=== PATIENT | female | born 1945 | race Caucasian/White ===

== ENCOUNTER 2019-04-01 12:23 | Outpatient (REF) | payer MEDICARE, OTHER, SELFPAY ==
[2019-04-01 21:44] LABS: TSH (W/Ref FT4) 23.18 uIU/mL (0.36-3.74)
== END 2019-04-01 12:43 ==
LOC: NCHCN 12:23
PROVIDERS: PCP Family Medicine; Visit Provider Nurse Practitioner Family
DX: E03.9 Hypothyroidism, unspecified (principal)
CPT/HCPCS: 84439; 84443

== ENCOUNTER 2019-06-07 21:07 | Outpatient (REF) | payer MEDICARE, OTHER, SELFPAY ==
[2019-06-07 21:32] LABS: TSH 6.59 uIU/mL (0.36-3.74)
== END 2019-06-07 21:27 ==
LOC: NCHCN 21:07
PROVIDERS: PCP Family Medicine; Visit Provider Nurse Practitioner Family
DX: E03.9 Hypothyroidism, unspecified (principal)
CPT/HCPCS: 84443

== ENCOUNTER 2019-08-29 14:09 | Outpatient (REF) | payer MEDICARE, OTHER, SELFPAY ==
[2019-08-29 21:39] LABS: TSH 0.23 uIU/mL (0.36-3.74)
[2019-08-29 21:41] LABS: Vitamin D 25 Total 29.7 ng/ml (30-100)
== END 2019-08-29 14:29 ==
LOC: NCHCN 14:09
PROVIDERS: PCP Family Medicine; Visit Provider Nurse Practitioner Family
DX: E03.9 Hypothyroidism, unspecified (principal); E55.9 Vitamin D deficiency, unspecified
CPT/HCPCS: 82306; 84443

== ENCOUNTER 2019-11-19 12:03 | Outpatient (REF) | payer MEDICARE, OTHER, SELFPAY | END 2019-11-19 12:23 | LOC: NCHCN 12:03 | PROVIDERS: PCP Family Medicine; Visit Provider Nurse Practitioner Family | DX: E03.9 Hypothyroidism, unspecified (principal) | CPT/HCPCS: 84443 ==

== ENCOUNTER 2020-05-20 15:45 | Outpatient (REF) | payer MEDICARE, OTHER, SELFPAY | END 2020-05-20 16:05 | LOC: NCHCN 15:45 | PROVIDERS: PCP Family Medicine; Visit Provider Nurse Practitioner Family | DX: E03.9 Hypothyroidism, unspecified (principal) | CPT/HCPCS: 84443 ==

== ENCOUNTER 2020-05-25 11:48 | Outpatient (REF) | payer MEDICARE, OTHER, SELFPAY ==
[2020-05-25 21:48] LABS: Abs Immature Grans 0.02 10^3/uL (0.0-0.06); Absolute Basophil Count 0.06 10^3/uL (0.0-0.2); Absolute Eosinophil Count 0.24 10^3/uL (0.0-0.7); Absolute Lymphocyte Count 1.93 10^3/uL (1.2-3.4); Absolute Neutrophil Count 3.12 10^3/uL (1.2-6.7); HCT 41.2 % (36.0-46.0); HGB 13.5 g/dL (11.2-15.7); Immature Grans % 0.3; Lymphocytes % 32.3; MCH 31.7 pg (27.0-33.0); MCHC 32.8 % (32.0-36.0); MCV 96.7 fL (80-95); MPV 9.8 fL (8.0-11.0); Monocytes % 10.1; Neutrophils % 52.3; Nucleated RBC 0 %; Platelet Count 222 10^3/uL (130-400); RBC 4.26 10^6/uL (3.93-5.22); RDW 11.9 % (11.7-14.6); RDW-SD 42.8 fL; WBC 5.97 10^3/uL (4.4-10.8)
[2020-05-25 22:09] LABS: ALT 18 U/L (14-59); AST 18 U/L (15-37); Albumin 3.5 g/dL (3.4-5.0); Alkaline Phosphatase 46 U/L (46-116); Anion Gap 5.2 mmol/L (3-11); BUN 14 mg/dL (7-18); Bilirubin, Total 0.8 mg/dL (0.2-1.0); CO2 29.8 mmol/L (21.0-32.0); CREATININE 0.82 mg/dL (0.55-1.02); Calcium 8.9 mg/dL (8.5-10.1); Chloride 105 mmol/L (98-107); Glucose 86 mg/dL (74-106); Potassium 4.5 mmol/L (3.5-5.1); Sodium 140 mmol/L (136-145); Total Protein 6.6 g/dL (6.4-8.2)
== END 2020-05-25 12:08 ==
LOC: NCHCN 11:48
PROVIDERS: PCP Family Medicine; Visit Provider Nurse Practitioner Family
DX: R00.2 Palpitations (principal); E03.9 Hypothyroidism, unspecified; N95.0 Postmenopausal bleeding; Z79.890 Hormone replacement therapy
CPT/HCPCS: 80053; 85025

== ENCOUNTER 2020-11-19 21:24 | Outpatient (REF) | payer MEDICARE, SELFPAY ==
[2020-11-19 20:10] LABS: TSH 0.01 uIU/mL (0.36-3.74)
== END 2020-11-19 21:25 | disposition home or self-care (01) ==
LOC: NCHCN 21:24
PROVIDERS: PCP Family Medicine; Visit Provider Nurse Practitioner Family
DX: R00.2 Palpitations (principal)
CPT/HCPCS: 84443

== ENCOUNTER 2021-02-15 12:44 | Outpatient (REF) | payer MEDICARE, SELFPAY ==
[2021-02-15 22:01] LABS: TSH 0.44 uIU/mL (0.36-3.74)
== END 2021-02-15 12:45 | disposition home or self-care (01) ==
LOC: NCHCN 12:44
PROVIDERS: PCP Family Medicine; Visit Provider Nurse Practitioner Family
DX: E03.9 Hypothyroidism, unspecified (principal)
CPT/HCPCS: 84443

== ENCOUNTER 2021-05-05 13:26 | Outpatient (REF) | payer MEDICARE, SELFPAY ==
[2021-05-05 13:56] LABS: Abs Immature Grans 0.02 10^3/uL (0.0-0.06); Absolute Basophil Count 0.08 10^3/uL (0.0-0.2); Absolute Eosinophil Count 0.25 10^3/uL (0.0-0.7); Absolute Lymphocyte Count 1.65 10^3/uL (1.2-3.4); Absolute Monocyte Count 0.59 10^3/uL (0.1-0.8); Absolute Neutrophil Count 3.86 10^3/uL (1.2-6.7); Basophils % 1.2; Eosinophils % 3.9; HCT 38.9 % (36.0-46.0); HGB 12.8 g/dL (11.2-15.7); Immature Grans % 0.3; Lymphocytes % 25.6; MCH 30.8 pg (27.0-33.0); MCHC 32.9 % (32.0-36.0); MCV 93.7 fL (80-95); MPV 9.6 fL (8.0-11.0); Monocytes % 9.1; Neutrophils % 59.9; Nucleated RBC 0 %; Platelet Count 209 10^3/uL (130-400); RBC 4.15 10^6/uL (3.93-5.22); RDW 11.9 % (11.7-14.6); RDW-SD 41.1 fL; WBC 6.45 10^3/uL (4.4-10.8)
[2021-05-05 14:29] LABS: ALT 20 U/L (14-59); AST 15 U/L (15-37); Albumin 3.3 g/dL (3.4-5.0); Alkaline Phosphatase 55 U/L (46-116); Anion Gap 6.4 mmol/L (3-11); BUN 17 mg/dL (7-18); Bilirubin, Total 0.8 mg/dL (0.2-1.0); CO2 30.6 mmol/L (21.0-32.0); CREATININE 0.9 mg/dL (0.55-1.02); Calculated LDL 100 mg/dL (<100); Chloride 107 mmol/L (98-107); Cholesterol 189 mg/dL (<200); Glucose 73 mg/dL (74-106); HDL Cholesterol 75 mg/dL (40-60); Lipase 70 U/L (73-393); Sodium 144 mmol/L (136-145); TSH 0.34 uIU/mL (0.36-3.74); Total Protein 6.4 g/dL (6.4-8.2); Triglyceride 74 mg/dL (<150)
== END 2021-05-05 13:27 | disposition home or self-care (01) ==
LOC: NCHCN 13:26
PROVIDERS: PCP Family Medicine; Visit Provider Nurse Practitioner Family
DX: E03.9 Hypothyroidism, unspecified (principal); R10.33 Periumbilical pain; R00.2 Palpitations
CPT/HCPCS: 80053; 80061; 83690; 84443; 85025

== ENCOUNTER 2021-06-29 12:45 | Outpatient (REF) | payer MEDICARE, SELFPAY ==
[2021-06-29 16:16] LABS: TSH 2.24 uIU/mL (0.36-3.74)
== END 2021-06-29 12:46 | disposition home or self-care (01) ==
LOC: NCHCN 12:45
PROVIDERS: PCP Family Medicine; Visit Provider Nurse Practitioner Family
DX: E03.9 Hypothyroidism, unspecified (principal)
CPT/HCPCS: 84443

== ENCOUNTER 2021-07-22 01:48 | Outpatient (CLI) | payer MEDICARE, OTHER, SELFPAY ==
--- NOTE | 2021-07-22 12:15 | DI.MRI_ITS ---
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 COMPARISON: No exams were available for comparison FINDINGS: MARROW: There is no evidence of hip stress fracture or avascular necrosis nor ominous osseous lesions . ARTICULATION: There is no hip joint effusion. There is tearing of the superior aspect of the labrum. Also involve the anterior superior aspect. No evidence of paralabral cyst. There is no evidence o f hypertrophy of the ligamentum teres. No osteophytes. Mild cartilage degenerative changes. No lar ge chondral defect. SOFT TISSUES: No evidence of decubitus ulcers. No abnormal signal in the ischial tuberosities and schreiebr mstrings tendon attachment site. No evidence of iliopsoas bursitis. There is an abnormal amount of fluid adjacent to and above the greater trochanter of the right hip, n ot associated with abnormal intraosseous signal in the greater trochanter but intimately related to t he gluteus medius tendon. Most probably consistent with bursitis and partial tearing of the gluteus medius tendon. Fluid measures 2.7 cm AP by 3.7 cm craniocaudal by 1 cm maximum with. Most superior aspect of the fluid is 2.2 cm above the superior tip of the greater trochanter. There is no abnormal intraosseous signal in the greater trochanter and femoral neck. OTHER: IMPRESSION: 1. The main finding here is significant fluid adjacent to and above the level the greater trochanter of the right hip, intimately associated with the gluteus medius tendon but not associated with abnorm al intraosseous signal in the greater trochanter and ipsilateral femoral neck. Main consideration ar e prominent bursitis with element of tendinopathy of the gluteus medius. No abnormal intraosseous si gnal. 2. Please note that recent therapeutic injection in this region can cause similar MRI findings. 3. Superior labral tearing noted. No evidence of paralabral cyst. 4. Mild degenerative changes in the hips. No hip joint effusion. No osteophytes. No evidence of av ascular necrosis of the hip. DATA REPOSITORY:
== END 2021-07-22 02:08 ==
PROVIDERS: PCP Family Medicine; Visit Provider Neurological Surgery
DX: R93.6 Abnormal findings on diagnostic imaging of limbs; S73.191A Other sprain of right hip, initial encounter; X58.XXXA Exposure to other specified factors, initial encounter
CPT/HCPCS: 73721

== ENCOUNTER → 2021-11-10 08:37 | Outpatient (BNVA) | payer MEDICARE, OTHER, SELFPAY | PROVIDERS: PCP Family Medicine; Referring Provider Neurological Surgery; Visit Provider Psychiatry & Neurology Neurology | DX: M25.551 Pain in right hip (principal) | CPT/HCPCS: 99204 ==

== ENCOUNTER 2022-08-16 13:01 | Outpatient (REF) | payer MEDICARE, OTHER, SELFPAY ==
[2022-08-16 15:36] LABS: TSH 1.66 uIU/mL (0.36-3.74)
== END 2022-08-16 13:02 | disposition home or self-care (01) ==
LOC: NCHCN 13:01
PROVIDERS: PCP Family Medicine; Visit Provider Nurse Practitioner Family
DX: E03.9 Hypothyroidism, unspecified (principal)
CPT/HCPCS: 84443

== ENCOUNTER 2023-12-25 10:38 | Outpatient (REF) | payer MEDICARE, OTHER, SELFPAY ==
[2023-12-25 15:47] LABS: HCT 41.8 % (36.0-46.0); MCH 31.7 pg (27.0-33.0); MCHC 33.5 % (32.0-36.0); MCV 95 fL (80-95); MPV 9.4 fL (8.0-11.0); Platelet Count 270 10^3/uL (130-400); RBC 4.42 10^6/uL (3.93-5.22); RDW 12.5 % (11.7-14.6); RDW-SD 43.5 fL; WBC 6.91 10^3/uL (4.4-10.8)
[2023-12-25 16:29] LABS: ALT 16 U/L (14-59); AST 20 U/L (15-37); Albumin 3.9 g/dL (3.4-5.0); Alkaline Phosphatase 58 U/L (46-116); Anion Gap 7.7 mmol/L (3-11); BUN 20 mg/dL (7-18); Bilirubin, Total 0.8 mg/dL (0.2-1.0); CO2 29.3 mmol/L (21.0-32.0); CREATININE 0.9 mg/dL (0.55-1.02); Calculated LDL 99 mg/dL (<100); Chloride 104 mmol/L (98-107); Cholesterol 203 mg/dL (<200); Estimated GFR 65.84 (mL/min/1.73m2); Glucose 103 mg/dL (74-106); HDL Cholesterol 94 mg/dL (40-60); Potassium 4.6 mmol/L (3.5-5.1); Sodium 141 mmol/L (136-145); TSH 8.25 uIU/Ml (0.36-3.74); Total Protein 7.3 g/dL (6.4-8.2); Triglyceride 51 mg/dL (<150)
== END 2023-12-25 10:39 | disposition home or self-care (01) ==
LOC: NCHCN 10:38
PROVIDERS: PCP Family Medicine; Visit Provider Nurse Practitioner Family
DX: R03.0 Elevated blood-pressure reading, without diagnosis of hypertension (principal)
CPT/HCPCS: 80053; 80061; 85027; 84443

== ENCOUNTER 2024-03-04 13:24 | Outpatient (REF) | payer MEDICARE, OTHER, SELFPAY ==
[2024-03-04 15:04] LABS: TSH 0.23 uIU/Ml (0.36-3.74)
== END 2024-03-04 13:25 | disposition home or self-care (01) ==
LOC: NCHCN 13:24
PROVIDERS: PCP Family Medicine; Visit Provider Nurse Practitioner Family
DX: E03.9 Hypothyroidism, unspecified (principal)
CPT/HCPCS: 84443

== ENCOUNTER 2024-08-23 22:22 | Outpatient (REF) | payer MEDICARE, OTHER, SELFPAY ==
[2024-08-23 14:34] LABS: TSH 0.79 uIU/mL (0.36-3.74)
== END 2024-08-23 22:23 | disposition home or self-care (01) ==
LOC: NCHCN 22:22
PROVIDERS: PCP Family Medicine; Visit Provider Nurse Practitioner Family
DX: E03.9 Hypothyroidism, unspecified (principal)
CPT/HCPCS: 84443